=== PATIENT | female | born 1960 | race Caucasian/White ===

== ENCOUNTER 2016-10-18 16:31 | Outpatient (CLI) ==
[2016-10-18 16:52] LABS: BASOPHILS # (AUTO) 0.1 K/uL (0-0.2); BASOPHILS % (AUTO) 0.7 % (0.0-3.0); EOSINOPHILS # (AUTO) 0.3 K/ul (0.0-0.7); EOSINOPHILS % (AUTO) 2.4 % (0.0-7.0); HEMOGLOBIN 14.4 g/dl (12.0-16.0); IMMATURE GRANULOCYTE % (AUTO) 0.2 % (0.0-5.0); LYMPHOCYTES # (AUTO) 3.3 K/uL (0.60-3.4); MEAN CORPUSCULAR HEMOGLOBIN 31.2 pg (27.0-31.0); MEAN CORPUSCULAR HGB CONC 33.5 (31.8-35.4); MEAN CORPUSCULAR VOLUME 93.3 fl (81.0-99.0); MONOCYTES # (AUTO) 0.5 K/uL (0.4-2.0); MONOCYTES % (AUTO) 4.7 (0-10); NEUTROPHILS # (AUTO) 6.5 K/ul (2.0-6.9); PLATELET COUNT 291 10^3/uL (140-440); RED BLOOD COUNT 4.61 10^6/ul (4.20-5.40); WHITE BLOOD COUNT 10.63 K/ul (4.6-10.2)
[2016-10-18 17:11] LABS: ALBUMIN 3.8 g/dL (3.4-5.0); ALBUMIN/GLOBULIN RATIO 1.09; ANION GAP 13.9; BILIRUBIN,TOTAL 0.37 mg/dL (0.00-1.20); BUN/CREATININE RATIO 18.26; CREATININE 1.04 mg/dL (0.60-1.30); POTASSIUM 3.9 mmol/L (3.5-5.10); TOTAL PROTEIN 7.3 g/dL (6.4-8.2)
--- NOTE | 2016-10-18 19:36 | DI ---
EXAM: Lumbar spine three views HISTORY: Back pain, abscess COMPARISON: None TECHNIQUE: Three views lumbar spine were performed FINDINGS: The sacroiliac joints intact. Sacral arcuate lines intact. Vertebral bodies normal heig ht. No fracture. No subluxation. Multilevel marginal osteophyte formation. Multilevel interverte bral disc space narrowing with moderate disc space narrowing L2-L3, L3-L4, and L5-S1. Multilevel fa cet arthrosis. Atherosclerotic vascular calcification. IMPRESSION: Chronic discogenic degenerative disease and facet arthrosis.
== END 2016-10-18 16:32 | disposition home or self-care (01) ==
LOC: RAD 16:31
PROVIDERS: ATTEND Nurse Practitioner Family
DX: M54.2 Cervicalgia (principal); L02.91 Cutaneous abscess, unspecified
CPT/HCPCS: 36415; 80053; 85025

== ENCOUNTER 2017-04-05 12:47 | Emergency (ER) ==
[2017-04-05 12:55] VITALS: BP 136/84; TEMP 97.8; BMI 40.7
--- NOTE | 2017-04-05 13:05 | ED.PDOC ---
General ED Provider: Dr. LETI FORDE Chief Complaint: Foot Pain/Injury Stated Complaint: Left foot pain increased with weight bearing. Acute episode - has had several times in past. Time Seen by Physician: 12:55 Mode of Arrival: Walk-In Information Source: Patient Exam Limitations: No limitations Primary Care Provider: JACQUELINE MELCHOR Nursing and Triage Documentation Reviewed and Agree: Yes Review of Systems - Review Of Systems Constitutional: Reports: No symptoms Musculoskeletal: Reports: Other (Left foot plantar surface and medial midfoot pain). Denies: Gout Neurological: Reports: No symptoms All Other Systems: Reviewed and Negative Past Medical History - Past Medical History Previously Healthy: Yes Endocrine: Reports: None Cardiovascular: Reports: None Respiratory: Reports: None Hematological: Reports: None Gastrointestinal: Reports: None Genitourinary: Reports: None Neuro/Psych: Reports: TIA Musculoskeletal: Reports: Arthritis Cancer: Reports: None Last Menstrual Period: N/A - Surgical History General Surgical History: Reports: Cholecystectomy - Family History Family History: Reports: Unknown - Social History Smoking Status: Current every day smoker, Heavy tobacco smoker Hx Substance Use: No Alcohol Screening: None - Immunizations Tetanus Shot up to Date: No Physical Exam - Physical Exam Appearance: Well-appearing Pain Distress: Moderate (L foot pain) Interpretation - Radiology Interpretation Radiology Interpretation By: Radiologist Radiology Results: No acute changes Exam Interpreted: Other (Left foot) Critical Care Note - Critical Care Note Total Time (mins): 10 Course - Course Orders, Labs, Meds: Orders Category Date Time Status FOOT, LEFT 3 VIEWS Stat RADS 04/05/17 13:04 Completed Vital Signs: Temp Pulse Resp BP Pulse Ox 04/05/17 12:48 97.8 F 82 20 136/84 96 Departure - Departure Time of Disposition: 14:11 Disposition: HOME SELF-CARE Discharge Problem: Plantar fasciitis, left Instructions: Plantar Fasciitis (ED) Condition: Good Pt referred to PMD for follow-up: Yes (Call for appointment) Additional Instructions: Try cushion soles/inserts. Use antiinflamatory as prescribed. Consider follow up with [facility] - otherwise with primary care. Prescriptions: Indomethacin [Indocin] 25 mg PO TIDWM #45 capsule Allergies/Adverse Reactions: Allergies No Known Allergies Allergy (Unverified 04/05/17 12:47) Home Medications: Ambulatory Orders Indomethacin [Indocin] 25 mg PO TIDWM #45 capsule 04/05/17
--- NOTE | 2017-04-05 13:36 | DI ---
EXAM: Left foot, three views, 04/05/2017 HISTORY: Difficulty walking. Pain COMPARISON: None. FINDINGS / IMPRESSION: There is no evidence of acute fracture or dislocation. Chronic osteoarthriti c degenerative change. There is prominent dorsal osteophyte formation at the distal aspect of the midfoot. There is a prominent plantar calcaneal spur. The Achilles insertion site remains intact. No acute osseous abnormality.
== END 2017-04-05 14:20 | disposition home or self-care (01) ==
LOC: ED 12:47
DX: M72.2 Plantar fascial fibromatosis (principal); F17.210 Nicotine dependence, cigarettes, uncomplicated
CPT/HCPCS: 99282